=== PATIENT | female | born 1975 | race Caucasian/White ===

== ENCOUNTER 2018-07-26 18:34 | Emergency (ER) | payer OTHER ==
[2018-07-26 18:50] VITALS: BP 122/89
--- NOTE | 2018-07-26 19:05 | UC ---
Throat Pain/Nasal Jefferson HPI - HPI Summary HPI Summary: 43-year-old woman 43-year-old woman comes in with a chief complaint of sore throat today started today. When she was looking she noticed some white spots on her tonsils. No fevers or chills. Mild tenderness is swelling. No difficulty breathing. No rhinorrhea. The white spots are on her tonsils they' re not on the rest of her oral mucosa. - History of Current Complaint Chief Complaint: UCGeneralIllness Stated Complaint: SORE THROAT Time Seen by Provider: 07/26/18 18:45 Hx Last Menstrual Period: 2 wks ago Pain Intensity: 9 - Allergies/Home Medications Allergies/Adverse Reactions: Allergies Allergy/AdvReac Type Severity Reaction Status Date / Time amoxicillin Allergy Hives Verified 07/26/18 18:39 codeine Allergy Vomiting Verified 07/26/18 18:39 erythromycin base Allergy Rash Verified 07/26/18 18:39 Penicillins Allergy Vomiting Verified 07/26/18 18:39 MS Codeine [Codeine] AdvReac Intermediate Vomiting Verified 02/26/15 18:18 PMH/Surg Hx/FS Hx/Imm Hx Previously Healthy: Yes - Surgical History Surgical History: Yes Surgery Procedure, Year, and Place: csection x2 , tubal ligation. Teeth Extracted - Family History Known Family History: Positive: Non-Contributory - Social History Alcohol Use: None Substance Use Type: None Smoking Status (MU): Light Every Day Tobacco Smoker Type: Cigarettes Amount Used/How Often: 14-16 cigs per day Length of Time of Smoking/Using Tobacco: working on quitting, since age 14 Have You Smoked in the Last Year: Yes Review of Systems All Other Systems Reviewed And Are Negative: Yes Constitutional: Positive: Negative Skin: Positive: Negative Eyes: Positive: Negative ENT: Positive: Sore Throat Cardiovascular: Positive: Negative Gastrointestinal: Positive: Negative Motor: Positive: Negative Neurovascular: Positive: Negative Musculoskeletal: Positive: Negative Neurological: Positive: Negative Psychological: Positive: Negative Is Patient Immunocompromised?: No Physical Exam Triage Information Reviewed: Yes Appearance: Well-Appearing, No Pain Distress, Well-Nourished Vital Signs: Initial Vital Signs Temp 97.5 F 07/26/18 18:46 Pulse 87 07/26/18 18:46 Resp 17 07/26/18 18:46 BP 122/89 07/26/18 18:46 Pulse Ox 97 07/26/18 18:46 Vital Signs Reviewed: Yes Eye Exam: Normal Eyes: Positive: Conjunctiva Clear ENT: Positive: Pharyngeal erythema, Tonsillar swelling, Tonsillar exudate - WHITE SPOTS B/L TONSILS. NO WHITE PLAQUES ON THE REST OF THE ORAL MUCOSA. Neck: Positive: Supple Respiratory: Positive: Lungs clear, Normal breath sounds, No respiratory distress Cardiovascular: Positive: RRR Musculoskeletal Exam: Normal Musculoskeletal: Positive: Strength Intact, ROM Intact Neurological Exam: Normal Neurological: Positive: Alert, Muscle Tone Normal Psychological Exam: Normal Psychological: Positive: Age Appropriate Behavior Skin Exam: Normal Throat Pain/Nasal Course/Dx - Course Course Of Treatment: Cerumen was successfully removed with irrigation by nursing and the right ear. Because of the exudates on the tonsils and the size of the tonsils we'll go ahead and treat with an antibiotic clindamycin. Also has nystatin swish and swallow due to the white nature of the exudates which could possibly be thrush. Overall plan is to follow-up with primary care doctor get reevaluated sooner if worse or any questions or concerns. - Differential Dx/Diagnosis Provider Diagnosis: Tonsillitis, Impacted cerumen of right ear Discharge - Sign-Out/Discharge Documenting (check all that apply): Patient Departure All imaging exams completed and their final reports reviewed: No Studies - Discharge Plan Condition: Stable Disposition: HOME Prescriptions: Clindamycin Cap(NF) [Clindamycin Cap 300 mg Cap(NF)] 300 mg PO TID #28 cap Nystatin SUSPENSION* 500,000 units PO QID #180 ml Patient Education Materials: Tonsillitis (ED), Cerumen Impaction (ED) Referrals: Garcia Espinoza MD [Primary Care Provider] - Additional Instructions: FOLLOW UP WITH YOUR DOCTOR IF NOT COMPLETELY IMPROVED. GET REEVALUATED SOONER IF YOUR CONDITION WORSENS OR ANY QUESTIONS OR CONCERNS. - Billing Disposition and Condition Condition: STABLE Disposition: Home
[2018-07-26] MEDS ORDERED: Clindamycin CAP* 150 MG PO ONE ×2 (19:26→19:28)
[2018-07-26] MEDS ORDERED: Nystatin SUSPENSION* 100000 UNITS/ML 5 ML UDC PO ONE (19:26)
== END 2018-07-26 19:52 | disposition home or self-care (01) ==
LOC: UCEAST 18:34
DX: J03.90 Acute tonsillitis, unspecified (principal); H61.21 Impacted cerumen, right ear; F17.210 Nicotine dependence, cigarettes, uncomplicated; Z88.5 Allergy status to narcotic agent; Z88.3 Allergy status to other anti-infective agents; Z88.0 Allergy status to penicillin
CPT/HCPCS: 87651; 99213; A9270-GY; G0463

== ENCOUNTER 2018-12-13 18:55 | Emergency (ER) | payer OTHER ==
[2018-12-13 19:15] VITALS: BP 125/89
--- NOTE | 2018-12-13 19:52 | UC ---
Throat Pain/Nasal Jefferson HPI - HPI Summary HPI Summary: Here for assessment of progressive soreness and spots on the tongue, without fever, dysphagia, ear pain, or progressive respiratory symptoms. She does have a chronic cough related to smoking. She is not rady to discuss smokestopping at this time. Does use daily flovent for treatment of chronic cough. --reviewed notes from June 2018; treated with clindamycin for tonsillar exudate and given oral nystatin on the chance that there might be some thrush present. - History of Current Complaint Chief Complaint: [place] Stated Complaint: SORE THROAT Time Seen by Provider: 12/13/18 19:49 Hx Obtained From: Patient Hx Last Menstrual Period: 11/27/18 Onset/Duration: Gradual Onset, Lasting Days Severity: Moderate Pain Intensity: 5 Cough: Nonproductive Associated Signs & Symptoms: Positive: Negative - Epiglottits Risk Factors Epiglottis Risk Factors: Negative - Allergies/Home Medications Allergies/Adverse Reactions: Allergies Allergy/AdvReac Type Severity Reaction Status Date / Time amoxicillin Allergy Hives Verified 12/13/18 19:16 erythromycin base Allergy Rash Verified 12/13/18 19:16 codeine AdvReac Vomiting Verified 12/13/18 19:16 Penicillins AdvReac Vomiting Verified 12/13/18 19:16 PMH/Surg Hx/FS Hx/Imm Hx Respiratory History: Other - chronic cough Psychological History: Depression - major depression following of her ; treated at [facility] [place]. - Surgical History Surgical History: Yes Surgery Procedure, Year, and Place: csection x2 , tubal ligation. Teeth Extracted - Family History Known Family History: Positive: Diabetes - mother, Other - father COPD - Social History Alcohol Use: Weekly Substance Use Type: None Smoking Status (MU): Heavy Every Day Tobacco Smoker Type: Cigarettes Amount Used/How Often: 14-16+ cigs per day Length of Time of Smoking/Using Tobacco: since age 14 Have You Smoked in the Last Year: Yes Review of Systems All Other Systems Reviewed And Are Negative: Yes Constitutional: Positive: Negative, Other - approx 80 pound weight loss over the past year secondary to depression following the of her spouse. Skin: Positive: Negative ENT: Positive: Sore Throat, Other - sore tongue with plaque Respiratory: Negative: Shortness Of Breath, Cough Cardiovascular: Negative: Palpitations, Chest Pain Gastrointestinal: Positive: Negative Genitourinary: Positive: Negative Psychological: Positive: Depressed, Other - off antidepressant because she disliked side effects. Is Patient Immunocompromised?: No Physical Exam Triage Information Reviewed: Yes Appearance: Well-Appearing, No Pain Distress Vital Signs: Initial Vital Signs Temp 98.8 F 12/13/18 19:12 Pulse 78 12/13/18 19:12 Resp 18 12/13/18 19:12 BP 125/89 12/13/18 19:12 Pulse Ox 97 12/13/18 19:12 ENT: Positive: Pharyngeal erythema, Other - tongue with plaque. Upper denture, gum retraction lower dentition. Neck: Positive: Supple, Nontender, No Lymphadenopathy Respiratory: Positive: Lungs clear, Normal breath sounds Cardiovascular: Positive: RRR, No Murmur Musculoskeletal Exam: Normal Neurological Exam: Normal Psychological Exam: Other - mildly depressed mood and affect. Throat Pain/Nasal Course/Dx - Course Course Of Treatment: nystatin swish and swallow x 7 days. - Differential Dx/Diagnosis Differential Diagnosis/HQI/PQRI: Tonsillitis, Other - oral thrush Provider Diagnosis: Oral thrush Discharge - Sign-Out/Discharge Documenting (check all that apply): Patient Departure All imaging exams completed and their final reports reviewed: No Studies - Discharge Plan Condition: Stable Disposition: HOME Prescriptions: Nystatin SUSPENSION* 500,000 units PO QID #150 ml Patient Education Materials: Oral Candidiasis (ED) Referrals: Garcia Espinoza MD [Primary Care Provider] - Additional Instructions: You have been prescribed nystatin for oral thrush. You can decrease the risk of recurrence by ensuring that you rinse your mouth with clear water and spit following use of flovent. - Billing Disposition and Condition Condition: STABLE Disposition: Home
[2018-12-13] MEDS ORDERED: Nystatin SUSPENSION* 100000 UNITS/ML 5 ML UDC PO ONE (20:08)
== END 2018-12-13 20:20 | disposition home or self-care (01) ==
LOC: UCEAST 18:55
DX: B37.9 Candidiasis, unspecified (principal); F32.9 Major depressive disorder, single episode, unspecified; F17.210 Nicotine dependence, cigarettes, uncomplicated; Z88.5 Allergy status to narcotic agent; Z88.0 Allergy status to penicillin
CPT/HCPCS: 99212; A9270-GY; G0463

== ENCOUNTER 2019-01-08 16:04 | Emergency (ER) | payer OTHER ==
[2019-01-08 16:26] VITALS: BP 140/96
--- NOTE | 2019-01-08 17:44 | ED ---
Psychiatric Complaint - HPI Summary HPI Summary: The patient is a 43 y/o F brought in by police as 941 to [facility] with a chief complaint of anger and frustration tonight. She reports that she went to her cousins house to get her belongings because she has been homeless with her daughter since her recently , although she finally has gotten a place to stay through [facility]. When she went to [place] pick[place] her stuff, her cousins girlfriend said it wasnt her stuff, and she notes having issues with these family members a lot over the past few months. She asked if she could have her fathers urn out of her stuff, and they wouldnt give it to her, causing her to become very angry and state that she wanted to shoot herself. However, she now says that she said that out of anger and denies SI, HI, or any sort of plan for self-harm. She is currently staying with her mother. She is compliant with antidepressant medications. She sees her counselor weekly. Symptoms rated /10 in severity. She denies any fever, chills, erythema of eyes, sore throat, CP, SOB, cough, abd pain, nausea, vomiting, dysuria, hematuria, myalgia, rash, or dizziness. She called police. PMHx: thyroid disease, seizures , depression. Heavy every day cigarette smoker, rare EtOH, previous substance use (methamphetamine). Medications reviewed. Allergies noted. - History Of Current Complaint Time Seen by Provider: 01/08/19 16:11 Hx Obtained From: Patient Hx Last Menstrual Period: 11/27/18 Onset/Duration: Sudden Onset, Resolved Timing: Minutes Severity Initially: Mild Severity Currently: Moderate Character: Angry, Frustrated Aggravating Factor(s): Other - fighting with cousin's girlfriend and not being able to retrieve belongings Has Suicidal: Denies: Thoughts Has Homicidal: Denies: Thoughts - Allergies/Home Medications Allergies/Adverse Reactions: Allergies Allergy/AdvReac Type Severity Reaction Status Date / Time amoxicillin Allergy Hives Verified 01/08/19 16:27 erythromycin base Allergy Rash Verified 01/08/19 16:27 codeine AdvReac Vomiting Verified 01/08/19 16:27 Penicillins AdvReac Vomiting Verified 01/08/19 16:27 Home Medications: Home Medications FLUoxetine CAP* [PROzac CAP*] 20 mg PO DAILY 01/08/19 [History Confirmed ] traZODone TAB* [Desyrel TAB*] 50 mg PO BEDTIME 01/08/19 [History Confirmed 01/08] PMH/Surg Hx/FS Hx/Imm Hx Endocrine/Hematology History: Reports: Hx Thyroid Disease Denies: Hx Diabetes Cardiovascular History: Denies: Hx Hypertension Respiratory History: Denies: Hx Asthma, Hx Chronic Obstructive Pulmonary Disease (COPD) GI History: Denies: Hx Ulcer Neurological History: Reports: Hx Seizures Psychiatric History: Reports: Hx Depression Denies: Hx Schizophrenia, Hx Bipolar Disorder - Surgical History Surgical History: Yes Surgery Procedure, Year, and Place: csection x2 , tubal ligation. Teeth Extracted Infectious Disease History: No Infectious Disease History: Denies: Hx Hepatitis, Hx Human Immunodeficiency Virus (HIV), Traveled Outside the [place] in Last 30 Days - Family History Known Family History: Positive: Diabetes - mother, Other - father COPD - Social History Alcohol Use: Rare Hx Substance Use: Yes Substance Use Type: Reports: Other - methamphetamine Substance Use Comment - Amount & Last Used: not currently using Hx Tobacco Use: Yes Smoking Status (MU): Heavy Every Day Tobacco Smoker Type: Cigarettes Amount Used/How Often: 14-16+ cigs per day Length of Time of Smoking/Using Tobacco: since age 14 Have You Smoked in the Last Year: Yes Review of Systems Negative: Fever, Chills Negative: Erythema Negative: Sore Throat Negative: Chest Pain Negative: Shortness Of Breath, Cough Negative: Abdominal Pain, Vomiting, Nausea Negative: dysuria, hematuria Negative: Myalgia Negative: Rash Neurological: Other - Negative: dizziness. Psychological: Other - Positive: anger, frustration. Negative: SI, HI. All Other Systems Reviewed And Are Negative: Yes Physical Exam - Summary Physical Exam Summary: Constitutional: Well-developed, Well-nourished, Alert. (-) Distressed Skin: Warm, Dry HENT: Normocephalic; Atraumatic Eyes: Conjunctiva normal Neck: Musculoskeletal ROM normal neck. (-) JVD, (-) Stridor, (-) Tracheal deviation Cardio: Rhythm regular, rate normal, Heart sounds normal; Intact distal pulses; The pedal pulses are 2+ and symmetric. Radial pulses are 2+ and symmetric. (-) Murmur Pulmonary/Chest wall: Effort normal. (-) Respiratory distress, (-) Wheezes, (-) Rales Abd: Soft, (-) tenderness, (-) Distension, (-) Guarding, (-) Rebound Musculoskeletal: (-) Edema Lymph: (-) Cervical adenopathy Neuro: Alert, Oriented x3 Psych: Mood and affect Normal Triage Information Reviewed: Yes Vital Signs On Initial Exam: Initial Vitals Temp Pulse Resp BP Pulse Ox 97.7 F 109 16 140/96 94 01/08/19 16:23 01/08/19 16:23 01/08/19 16:23 01/08/19 16:23 01/08/19 16:23 Vital Signs Reviewed: Yes Diagnostics - Vital Signs Vital Signs Temp Pulse Resp BP Pulse Ox 01/08/19 16:23 97.7 F 109 16 140/96 94 - Laboratory Result Diagrams: 01/08/19 17:37 01/08/19 17:37 Lab Statement: Any lab studies that have been ordered have been reviewed, and results considered in the medical decision making process. Re-Evaluation - Re-Evaluation First Eval Re-Evaluation Time: 16:15 Comment: Pt is medically clear for [facility]HE. Course/Dx - Course Course Of Treatment: Pt is a 43 y/o F brought in as 941 with cc of sudden onset anger and frustration following family issues when she was unable to retrieve her belongings, causing her to state that she wanted to shoot herself, but she is no longer having SI, and she denies HI. Upon physical exam, the patient exhibits no acute abnormalities. Blood work reveals MCH 33, glucose 116, AST 10 , total protein 6.0, but is otherwise without abnormality. Toxicology report is negative for salicylates, acetaminophen, and serum alcohol. Mental health staff spoke with the patient and report that she is safe to go home and has a place to stay. Pt understands and agrees with plan. - Differential Dx/Clinical Impression Provider Diagnosis: Depression - Physician Notifications Discussed Care Of Patient With: mental health staff Time Discussed With Above Provider: 16:44 Instructed by Provider To: Other - Pt has safe place to be discharged home to. Discharge ED - Sign-Out/Discharge Documenting (check all that apply): Patient Departure - Patient will be discharged home. Patient Received Moderate/Deep Sedation with Procedure: No - Discharge Plan Condition: Stable Disposition: HOME Patient Education Materials: Depression (ED), Methamphetamine Abuse (ED) Referrals: Garcia Espinoza MD [Primary Care Provider] - - Billing Disposition and Condition Condition: STABLE Disposition: Home - Attestation Statements Document Initiated by Lyudmila: Yes Documenting Scribe: Elen Perry Provider For Whom Lyudmila is Documenting (Include Credential): Dr. Mark Harper MD Scribe Attestation: Elen Yo scribed for Dr. Mark Harper MD on 01/16/19 at 1156. Scribe Documentation Reviewed: Yes Provider Attestation: The documentation as recorded by the Elen garcia accurately reflects the service I personally performed and the decisions made by me, Dr. Mark Harper MD Status of Scribe Document: Viewed
[2019-01-08 17:51] LABS: ABS Basophils 0.1 10^3/ul (0-0.2); ABS Eosinophils 0.2 10^3/ul (0-0.6); ABS Monocytes 0.5 10^3/ul (0-0.8); ABS Neutrophils 6.1 10^3/ul (1.5-7.7); Eosinophil % 1.9 %; Hematocrit 43 % (35-47); Hemoglobin 14.6 g/dL (12.0-16.0); Lymphocyte % 22.7 %; Mean Corpuscular HGB Conc 34 g/dL (31-36); Mean Corpuscular Hemoglobin 33 pg (27-31); Mean Corpuscular Volume 97 fL (80-97); Nucleated Red Blood Cells % 0.2; Platelet Count 228 10^3/uL (150-450); Red Blood Count 4.48 10^6 /uL (3.70-4.87); Red Cell Distribution Width 14 % (10-15); White Blood Count 8.9 10^3/uL (3.5-10.8)
[2019-01-08 18:05] LABS: AST 10 U/L (13-39); Albumin 3.9 g/dL (3.2-5.2); Albumin/Globulin Ratio 1.9 (1-3); Alkaline Phosphatase 54 U/L (34-104); Anion Gap 3 mmol/L (2-11); BUN/Creatinine Ratio 11.9 (8-20); Blood Urea Nitrogen 8 mg/dL (6-24); CO2 Carbon Dioxide 28 mmol/L (22-32); Calcium 8.8 mg/dL (8.6-10.3); Chloride 108 mmol/L (101-111); EGFR African American 116.8 (>60); EGFR Non-African American 96.5 (>60); Globulin 2.1 g/dL (2-4); Glucose 116 mg/dL (70-100); Sodium 139 mmol/L (135-145)
[2019-01-08 18:07] LABS: ALT 14 U/L (7-52)
[2019-01-08 18:29] LABS: Acetaminophen < 15 mcg/mL; Alcohol < 10 mg/dL (<10); Salicylate < 2.50 mg/dL (<30)
[2019-01-08 18:43] LABS: TSH (Thyroid Stimulating Horm) 1.32 mcIU/mL (0.34-5.60)
== END 2019-01-08 19:25 | disposition home or self-care (01) ==
LOC: ED 16:04
DX: F32.9 Major depressive disorder, single episode, unspecified (principal); E07.9 Disorder of thyroid, unspecified; F17.210 Nicotine dependence, cigarettes, uncomplicated; Z79.899 Other long term (current) drug therapy; Z88.1 Allergy status to other antibiotic agents; Z88.5 Allergy status to narcotic agent; Z88.0 Allergy status to penicillin
CPT/HCPCS: 36415; 80053; 80320; 80329; 84443; 85025; 99285; G0480

== ENCOUNTER 2019-04-12 12:00 | Emergency (ER) | payer OTHER ==
[2019-04-12 12:09] VITALS: BP 124/82
--- NOTE | 2019-04-12 12:10 | UC ---
Complaint Female HPI - HPI Summary HPI Summary: Patient is a 44yo female presenting with urinary frequency, urgency, and burning with urination x2 days. Denies hematuria. Denies abdominal pain and pressure. Denies flank pain. Denies n/v. Denies fever and chills. Patient states she took Azo for symptoms with last dose last night at 11pm. Patient also notes that she was given metronidazole by pcp on 04/08 for "bacterial infection" but she stopped taking it after one day because it "made her nauseous. She admits it was for "something vaginal but that she doesn't have any symptoms and needs to call them back." - History Of Current Complaint Stated Complaint: UTI Hx Obtained From: Patient Hx Last Menstrual Period: end February Onset/Duration: Gradual Onset, Lasting Days Severity Currently: Mild Pain Intensity: 3 Pain Scale Used: 0-10 Numeric Associated Signs And Symptoms: Negative: Fever, Back Pain, Vaginal Bleeding/ Discharge, Vaginal Discharge, Nausea - Allergies/Home Medications Allergies/Adverse Reactions: Allergies Allergy/AdvReac Type Severity Reaction Status Date / Time amoxicillin Allergy Hives Verified 04/12/19 12:09 erythromycin base Allergy Rash Verified 04/12/19 12:09 codeine AdvReac Vomiting Verified 04/12/19 12:09 Penicillins AdvReac Vomiting Verified 04/12/19 12:09 Home Medications: Home Medications Fluticasone Propionate [Flovent Hfa] 04/12/19 [History] Ranitidine TAB (NF) [Zantac TAB (NF)] 04/12/19 [History] Uristat* PRN 04/12/19 [History] metroNIDAZOLE * [Flagyl] 500 mg PO BID 04/12/19 [History Confirmed 04/12/19] PMH/Surg Hx/FS Hx/Imm Hx Psychological History: Depression - Surgical History Surgical History: Yes Surgery Procedure, Year, and Place: csection x2 , tubal ligation. Teeth Extracted - Family History Known Family History: Positive: Diabetes - mother, Other - father COPD, Non -Contributory - Social History Alcohol Use: None Substance Use Type: None Substance Use Comment - Amount & Last Used: not currently using Smoking Status (MU): Current Every Day Smoker Type: Cigarettes Amount Used/How Often: 1 ppd Length of Time of Smoking/Using Tobacco: since age 14 Have You Smoked in the Last Year: Yes Review of Systems All Other Systems Reviewed And Are Negative: Yes Constitutional: Positive: Negative. Negative: Fever, Chills Respiratory: Positive: Negative Cardiovascular: Positive: Negative Gastrointestinal: Positive: Negative. Negative: Abdominal Pain, Vomiting, Nausea Genitourinary: Positive: Dysuria, Frequency, Urgency, Vaginal/Penile Burning. Negative: Hematuria, Vaginal/Penile Itching, Vaginal/Penile Discharge Musculoskeletal: Positive: Negative Neurological: Positive: Negative Physical Exam Triage Information Reviewed: Yes Appearance: Well-Appearing, No Pain Distress, Well-Nourished Vital Signs: Initial Vital Signs Temp 97.8 F 04/12/19 12:06 Pulse 104 04/12/19 12:06 Resp 16 04/12/19 12:06 BP 124/82 04/12/19 12:06 Pulse Ox 97 04/12/19 12:06 Vital Signs Reviewed: Yes Eyes: Positive: Conjunctiva Clear ENT: Positive: Hearing grossly normal Neck: Positive: Supple Respiratory Exam: Normal Respiratory: Positive: Lungs clear, Normal breath sounds, No respiratory distress Cardiovascular Exam: Normal Cardiovascular: Positive: RRR Abdomen Description: Positive: Nontender, Soft. Negative: CVA Tenderness (R), CVA Tenderness (L) Neurological: Positive: Alert Psychological: Positive: Age Appropriate Behavior Complaint Female Dx - Course Course Of Treatment: Patient UA unable to obtain d/t recent use of Azo. Urine sent for culture. I treated patient with Macrobid patient based on HPI and informed her that she would be notified with any results warranting treatment. Patient voiced understanding and agreed with treatment plan. - Differential Dx/Diagnosis Provider Diagnosis: UTI symptoms Discharge ED - Sign-Out/Discharge Documenting (check all that apply): Patient Departure All imaging exams completed and their final reports reviewed: No Studies - Discharge Plan Condition: Stable Disposition: HOME Prescriptions: Nitrofurantoin Monohyd/M-Cryst [Macrobid 100 mg Capsule] 100 mg PO BID #10 cap Patient Education Materials: Urinary Tract Infection in Women (ED) Referrals: Garcia Espinoza MD [Primary Care Provider] - If Needed Additional Instructions: As discussed, take Macrobid for treatment of your UTI. Your urine has been sent for culture and you will be notified with any results that warrant a change in treatment. You may continue to take uristat as directed for symptomatic relief. Increase your fluid intake. Follow up with your PCP if symptoms do not resolve. Return or go to emergency room with any new or worsening symptoms. - Billing Disposition and Condition Condition: STABLE Disposition: Home - Attestation Statements Provider Attestation: I was available for consult. This patient was seen by the [facility]. The patient was not presented to , seen by or examined by me -Pacheco Falcon MD
== END 2019-04-12 12:39 | disposition home or self-care (01) ==
LOC: UCEAST 12:00
DX: N39.0 Urinary tract infection, site not specified (principal); F17.210 Nicotine dependence, cigarettes, uncomplicated; Z88.0 Allergy status to penicillin; Z88.1 Allergy status to other antibiotic agents; Z88.5 Allergy status to narcotic agent
CPT/HCPCS: 87077; 87086; 87186; 99212; G0463